=== PATIENT | female | born 2000 | race Two or more races ===

== ENCOUNTER 2019-02-10 14:45 | Emergency (ER) | payer OTHER ==
[~2019-02-10] VITALS: Ht 157.5 cm; Wt 62.6 kg
[2019-02-10 14:51] VITALS: BP 132/86
--- NOTE | 2019-02-10 14:54 | NUR ---
Pt ambulated to bed 5.
--- NOTE | 2019-02-10 15:19 | NUR ---
DR. ARMIJO AT BEDSIDE
[2019-02-10] MEDS ORDERED: NACL 0.9% 1,000 ML IV SCH (15:21)
[2019-02-10] MEDS ORDERED: ONDANSETRON 4 MG/2 ML VIAL IVP ONE (15:25)
--- NOTE | 2019-02-10 15:30 | NUR ---
18/F BIBS, BOYFRIEND IS AT BEDSIDE. CAME IN FOR VOMITING, "CANNOT HOLD ANYTHYNG DOWN" REPORTS DIZINESS, NO DIARRHEA, NO CHILLS OR FEVER, NO VAGINAL DISCHARGE, NO UTI SYMPTOMS. PT IS 11 WEEKS . PT STATES SHE FEELS DEHYDRATED DUE TO NOT BEEN ABLE TO DRINK OR EAT SHE THROWS IT BACK UP. PMHX DENIES RX: DENIES
[2019-02-10 15:52] LABS: BASOPHILS % (AUTO) 0.2 % (0.0-2.0); EOSINOPHILS % (AUTO) 0.3 % (0.0-4.0); HEMATOCRIT 38.5 % (36-48); HEMOGLOBIN 13.5 g/dL (12.0-16.0); LYMPHOCYTES # (AUTO) 1.6 K/uL (2.5-16.5); LYMPHOCYTES % (AUTO) 17.2 % (20.5-51.1); MEAN CORPUSCULAR HEMOGLOBIN 33 pg (27-31); MEAN CORPUSCULAR HGB CONC 35 g/dL (33-37); MEAN CORPUSCULAR VOLUME 92.8 fL (80-94); MONOCYTES # (AUTO) 0.5 K/uL (0.8-1.0); MONOCYTES % (AUTO) 4.9 % (1.7-9.3); NEUTROPHILS # (AUTO) 7.2 K/uL (1.8-7.7); NEUTROPHILS % (AUTO) 77.4 % (42.2-75.2); PLATELET COUNT (AUTO) 267 K/uL (140-450); RED BLOOD CELL COUNT(AUTO) 4.15 MIL/uL (4.20-5.40); RED CELL DISTRIBUTION WIDTH 12.3 % (11.6-13.7); WHITE BLOOD COUNT (AUTO) 9.3 K/uL (4.5-11.0)
[2019-02-10 16:15] LABS: ANION GAP 13.1 (8-16); CARBON DIOXIDE 26.7 mmol/L (21-32); CREATININE 0.6 mg/dL (0.6-1.3); POTASSIUM 3.8 mmol/L (3.5-5.1)
[2019-02-10 16:20] LABS: ALBUMIN 3.7 g/dL (3.4-5.0); TOTAL BILIRUBIN 0.6 mg/dL (0.0-1.0)
[2019-02-10 17:56] VITALS: BP 110/60
--- NOTE | 2019-02-10 17:56 | NUR ---
IV removed, catheter intact and site benign. Applied folded 4x4 gauze and tape to stop bleeding.
--- NOTE | 2019-02-10 17:56 | NUR ---
Patient discharged with v/s stable. Written and verbal after care instructions given and explained. Patient alert, oriented and verbalized understanding of instructions. Ambulatory with steady gait. All questions addressed prior to discharge. ID band removed. Patient advised to follow up with PMD. Copies of labs given to patient for follow up. Rx of Diclegis 10mg-10mg given. Patient educated on indication of medication including possible reaction and side effects. Opportunity to ask questions provided and answered.
== END 2019-02-10 17:56 | disposition home or self-care (01) ==
LOC: MED 14:45
DX: O21.0 Mild hyperemesis gravidarum (principal); O26.811 Pregnancy related exhaustion and fatigue, first trimester; R42 Dizziness and giddiness; Z3A.13 13 weeks gestation of pregnancy
CPT/HCPCS: 36415; 80053; 83690; 85025; 96361; 96374; 99283; J2405; J7030

== ENCOUNTER 2019-08-16 08:02 | Inpatient (IN) | payer MEDICAID, OTHER ==
[~2019-08-16] VITALS: Ht 157.5 cm; Wt 74.8 kg
[2019-08-16] MEDS ORDERED: PREN-380 PO (08:11)
[2019-08-16] MEDS ORDERED: LACTATED RINGERS 1,000 ML IV SCH (08:12)
[2019-08-16] MEDS ORDERED: PROMETHAZINE 25 MG/ML VIAL IVP PRN (08:15)
[2019-08-16] MEDS ORDERED: CARBOPROST 250 MCG/ML AMP IM PRN (08:15)
[2019-08-16] MEDS ORDERED: METHYLERGONOVINE 0.2 MG/ML AMP IM PRN (08:15)
[2019-08-16] MEDS ORDERED: OXYTOCIN 20 UNITS in LACTATED RINGERS 1,000 ML IV SCH (08:15)
[2019-08-16] MEDS ORDERED: AMPICILLIN 2,000 MG in NACL 0.9% MINI-BAG PLUS 100 ML IV SCH (08:15)
[2019-08-16] MEDS ORDERED: AMPICILLIN 2,000 MG VIAL ONE (08:48)
--- NOTE | 2019-08-16 09:21 | NUR ---
PATIENT HAS BEEN SCREENED AND CATEGORIZED LOW NUTRITION RISK. PATIENT WILL BE SEEN WITHIN 7 DAYS OF ADMISSION. 08/22/[address]
[2019-08-16 09:27] LABS: BASOPHILS % (AUTO) 0.1 % (0.0-2.0); EOSINOPHILS % (AUTO) 0.4 % (0.0-4.0); HEMATOCRIT 34.8 % (36-48); HEMOGLOBIN 11.8 g/dL (12.0-16.0); LYMPHOCYTES # (AUTO) 2.1 K/uL (2.5-16.5); LYMPHOCYTES % (AUTO) 18.4 % (20.5-51.1); MEAN CORPUSCULAR HEMOGLOBIN 32 pg (27-31); MEAN CORPUSCULAR HGB CONC 34 g/dL (33-37); MEAN CORPUSCULAR VOLUME 94.7 fL (80-94); MONOCYTES # (AUTO) 0.7 K/uL (0.8-1.0); MONOCYTES % (AUTO) 6.4 % (1.7-9.3); NEUTROPHILS # (AUTO) 8.6 K/uL (1.8-7.7); NEUTROPHILS % (AUTO) 74.7 % (42.2-75.2); PLATELET COUNT (AUTO) 251 K/uL (140-450); RED BLOOD CELL COUNT(AUTO) 3.67 MIL/uL (4.20-5.40); WHITE BLOOD COUNT (AUTO) 11.5 K/uL (4.5-11.0)
[2019-08-16 09:30] LABS: APPEARANCE,URINE CLEAR (CLEAR); BILIRUBIN,URINE NEGATIVE (NEGATIVE); BLOOD, URINE NEGATIVE (NEGATIVE); COLOR,URINE YELLOW (YELLOW); LEUKOCYTE ESTERASE ,URINE NEGATIVE (NEGATIVE); NITRITE, URINE NEGATIVE (NEGATIVE); UGLUCOSE NEGATIVE (NEGATIVE)
[2019-08-16] MEDS ORDERED: OXYTOCIN 20 UNITS/LR PREMIX 1,000 ML IV ONE (09:38)
[2019-08-16] MEDS ORDERED: AMPICILLIN 1,000 MG VIAL ONE ×3 (12:30→21:01)
[2019-08-16] MEDS: AMPICILLIN 1,000 MG in NACL 0.9% MINI-BAG PLUS 50 ML IV SCH ×2 (12:34→21:09)
[2019-08-16] MEDS ORDERED: ROPIVACAINE 0.2%/NS PREMIX 200 ML EPI ONE (13:27)
[2019-08-17] MEDS ORDERED: AMPICILLIN 1,000 MG VIAL ONE (00:54)
[2019-08-17] MEDS ORDERED: DOCUSATE SODIUM 100 MG GELCAP PO PRN (03:05)
[2019-08-17] MEDS ORDERED: OXYTOCIN 10 UNITS/ML VIAL IM PRN (03:05)
[2019-08-17] MEDS ORDERED: METHYLERGONOVINE 0.2 MG/ML AMP IM PRN (03:05)
[2019-08-17] MEDS ORDERED: MEASLES, MUMPS, AND RUBELLA 1 VIAL SQVAC PRN (03:05)
[2019-08-17] MEDS ORDERED: bisacodyL 5 MG TABEC PO PRN (03:05)
[2019-08-17] MEDS ORDERED: SIMETHICONE 80 MG TAB.CHEW PO PRN (03:05)
[2019-08-17] MEDS ORDERED: BENZOCAINE/MENTHOL 20%-0.5% 60 GM CAN TP PRN (03:05)
[2019-08-17] MEDS ORDERED: guaiFENesin/CODEINE 100/10MG 5 ML UDC PO PRN (03:05)
[2019-08-17] MEDS ORDERED: METHYLERGONOVINE 0.2 MG TAB PO PRN (03:05)
[2019-08-17] MEDS ORDERED: IBUPROFEN 600 MG TAB PO PRN ×2 (03:05)
[2019-08-17] MEDS: IBUPROFEN 800 MG TAB PO PRN (08:22)
[2019-08-18 08:06] LABS: HEMATOCRIT 30.4 % (36-48); HEMOGLOBIN 10.2 g/dL (12.0-16.0)
[2019-08-18] MEDS: IBUPROFEN 800 MG TAB PO PRN (15:46)
[2019-08-19] MEDS ORDERED: IBUP-2213 PO (08:03)
== END 2019-08-19 14:40 | disposition home or self-care (01) | DRG 560 ==
LOC: MLD 08:02 → OBSVTOIN 08:02 → MFCC 08-17 04:00
PROVIDERS: ADMIT Obstetrics & Gynecology; ATTEND Obstetrics & Gynecology
PROC: 3E033VJ Introduction of Other Hormone into Peripheral Vein, Percutaneous Approach (ICD-10-PCS; 2019-08-16)
PROC: 00HU33Z Insertion of Infusion Device into Spinal Canal, Percutaneous Approach (ICD-10-PCS; 2019-08-16)
PROC: 3E0R3BZ Introduction of Anesthetic Agent into Spinal Canal, Percutaneous Approach (ICD-10-PCS; 2019-08-16)
PROC: 10E0XZZ Delivery of Products of Conception, External Approach (ICD-10-PCS; principal; 2019-08-17)
PROC: 0UC97ZZ Extirpation of Matter from Uterus, Via Natural or Artificial Opening (ICD-10-PCS; 2019-08-17)
DX: O99.824 Streptococcus B carrier state complicating childbirth (principal); Z37.0 Single live birth; O72.1 Other immediate postpartum hemorrhage; Z3A.40 40 weeks gestation of pregnancy; D62 Acute posthemorrhagic anemia
CPT/HCPCS: 36415; 51702; 59409; 81003; 85018; 85025; 86592; 86886; 86900; 86901; J0290; J2210; J2590; J2795; J7120

== ENCOUNTER 2020-12-01 14:25 | Emergency (ER) | payer MEDICAID ==
[~2020-12-01] VITALS: Ht 154.9 cm; Wt 74.8 kg
[~2020-12-01 14:25] MED LIST: IBUP-2213 PO; PREN-380 PO
[2020-12-01 14:31] VITALS: BP 126/61
--- NOTE | 2020-12-01 14:35 | NUR ---
PT TO AWAIT IN LOBBY
--- NOTE | 2020-12-01 17:03 | NUR ---
DR SAID EXAMINING PT
[2020-12-01] MEDS ORDERED: NACL 0.9% 1,000 ML IV ONE (17:10)
[2020-12-01] MEDS ORDERED: ONDANSETRON 4 MG/2 ML VIAL IVP ONE (17:10)
[2020-12-01] MEDS ORDERED: ACETAMINOPHEN 325 MG TAB PO ONE (17:10)
[2020-12-01 17:33] LABS: BASOPHILS % (AUTO) 0.3 % (0.0-2.0); EOSINOPHILS % (AUTO) 0.1 % (0.0-4.0); HEMATOCRIT 37.1 % (36-48); HEMOGLOBIN 12.5 g/dL (12.0-16.0); LYMPHOCYTES # (AUTO) 0.9 K/uL (2.5-16.5); LYMPHOCYTES % (AUTO) 13.5 % (20.5-51.1); MEAN CORPUSCULAR HEMOGLOBIN 31 pg (27-31); MEAN CORPUSCULAR HGB CONC 34 g/dL (33-37); MONOCYTES # (AUTO) 0.7 K/uL (0.8-1.0); MONOCYTES % (AUTO) 11.3 % (1.7-9.3); NEUTROPHILS # (AUTO) 4.7 K/uL (1.8-7.7); NEUTROPHILS % (AUTO) 74.8 % (42.2-75.2); PLATELET COUNT (AUTO) 291 K/uL (140-450); RED BLOOD CELL COUNT(AUTO) 3.99 MIL/uL (4.20-5.40); WHITE BLOOD COUNT (AUTO) 6.3 K/uL (4.8-10.8)
[2020-12-01 17:49] LABS: ALBUMIN 3.8 g/dL (3.4-5.0); ANION GAP 9.7 (8-16); CARBON DIOXIDE 25.8 mmol/L (21-32); CREATININE 0.6 mg/dL (0.6-1.3); POTASSIUM 3.5 mmol/L (3.5-5.1); TOTAL BILIRUBIN 0.3 mg/dL (0.0-1.0)
[2020-12-01 18:33] LABS: APPEARANCE,URINE CLEAR (CLEAR); BILIRUBIN,URINE NEGATIVE (NEGATIVE); BLOOD, URINE NEGATIVE (NEGATIVE); COLOR,URINE YELLOW (YELLOW); LEUKOCYTE ESTERASE ,URINE NEGATIVE (NEGATIVE); NITRITE, URINE NEGATIVE (NEGATIVE); PH,URINE 7.5 (5.0-9.0); UGLUCOSE NEGATIVE (NEGATIVE)
--- NOTE | 2020-12-01 18:55 | NUR ---
pt ambulated to bed 12
[2020-12-01] MEDS ORDERED: ONDANSETRON 4 MG/2 ML VIAL ONE (20:06)
[2020-12-01] MEDS ORDERED: ACETAMINOPHEN 325 MG TAB ONE (20:07)
[2020-12-01] MEDS ORDERED: ONDA-24 PO (20:51)
[2020-12-01] MEDS ORDERED: ACET-2619 PO (21:03)
--- NOTE | 2020-12-01 21:29 | NUR ---
d/c with VSS. d/c education given. opportunity to ask questions given and answered. rx of tylenol and zofran.
[2020-12-01 21:32] VITALS: BP 115/69
== END 2020-12-01 21:29 | disposition home or self-care (01) ==
LOC: MED 14:25
DX: O98.511 Other viral diseases complicating pregnancy, first trimester (principal); U07.1 COVID-19; O21.8 Other vomiting complicating pregnancy; E87.1 Hypo-osmolality and hyponatremia; Z3A.01 Less than 8 weeks gestation of pregnancy
CPT/HCPCS: 36415; 76801; 80053; 81003; 81025; 84702; 85025; 87086; 87186; 87426; 96361; 96374; 99284; J2405; J7030; Q0092

== ENCOUNTER 2021-09-06 15:23 | Emergency (ER) | payer MEDICAID ==
[~2021-09-06] VITALS: Ht 154.9 cm; Wt 70.9 kg
[~2021-09-06 15:23] MED LIST changes: +ACET-2619 PO; +ONDA-188 PO
[2021-09-06 15:37] VITALS: BP 137/97
[2021-09-06] MEDS ORDERED: ACET-10509 PO (17:34)
[2021-09-06] MEDS ORDERED: DEXT5SYR3 PO (17:34)
[2021-09-06 17:58] VITALS: BP 112/74
[2021-09-06] MEDS ORDERED: CEPH-588 PO (18:04)
== END 2021-09-06 18:00 | disposition home or self-care (01) ==
LOC: MED 15:23
DX: U07.1 COVID-19 (principal); N39.0 Urinary tract infection, site not specified; Z79.899 Other long term (current) drug therapy
CPT/HCPCS: 81002; 81025; 99283